=== PATIENT | female | born 1940 | race African-American/Black ===

== ENCOUNTER → 2016-11-03 | Outpatient (CLI) | payer MEDICARE, MEDICAID ==
[~2016-11-03] MED LIST: ALLO100T PO; ASPI-1035 PO; ATOR40TA70 PO; ESOM40CA PO; LORA10TA7 PO
== END | disposition home or self-care (01) ==
LOC: MAMMO 10:20
PROVIDERS: ATTEND Specialist
DX: Z12.31 Encounter for screening mammogram for malignant neoplasm of breast (principal)
CPT/HCPCS: G0202

== ENCOUNTER → 2017-04-26 | Outpatient (CLI) | payer MEDICARE, MEDICAID ==
[~2017-04-26] MED LIST changes: -ASPI-1035 PO; +ASPI-1159 PO
== END | disposition home or self-care (01) ==
LOC: US 07:47
PROVIDERS: ATTEND Internal Medicine
DX: K76.0 Fatty (change of) liver, not elsewhere classified (principal); N28.9 Disorder of kidney and ureter, unspecified; K80.50 Calculus of bile duct without cholangitis or cholecystitis without obstruction
CPT/HCPCS: 76700

== ENCOUNTER → 2019-03-27 | Outpatient (CLI) | payer MEDICARE ==
[~2019-03-27] MED LIST changes: -ASPI-1159 PO; +ASPI-1393 PO
== END | disposition home or self-care (01) ==
LOC: RAD 12:23
PROVIDERS: ATTEND Specialist
DX: M19.042 Primary osteoarthritis, left hand (principal)
CPT/HCPCS: 73140

== ENCOUNTER 2020-10-15 10:45 | Emergency (ER) | payer MEDICARE, MEDICAID ==
[~2020-10-15] VITALS: Ht 167.6 cm; Wt 90.7 kg
[~2020-10-15 10:45] MED LIST changes: -ASPI-1393 PO; +ASPI-1497 PO
[2020-10-15] MEDS ORDERED: ACETAMINOPHEN 325MG TABLET PO ONE (11:15)
[2020-10-15] MEDS ORDERED: AMLODIPINE 10MG TABLET PO ONE (11:15)
[2020-10-15] MEDS ORDERED: ALLOPURINOL 100 MG TABLET PO SCH (11:15)
[2020-10-15] MEDS ORDERED: ASPIRIN 325MG EC TABLET PO ONE (11:15)
[2020-10-15] MEDS ORDERED: LIDOCAINE 5% PATCH TOP SCH (11:15)
[2020-10-15] MEDS ORDERED: BACLOFEN 10MG TABLET PO NR (11:30)
[2020-10-15 12:09] LABS: EOSINOPHILS % 4.2 % (0.0-5.0); HEMATOCRIT. 45.3 % (36.0-48.0); HEMOGLOBIN. 15.3 g/dL (12.0-16.0); LYMPHOCYTES % 23.5 % (20.0-50.0); MEAN CORPUSCULAR HEMOGLOBIN 29.2 pg (28.0-32.0); MEAN CORPUSCULAR VOLUME 86.5 fL (81.0-99.0); MEAN PLATELET VOLUME 9.8 fl (7.4-10.4); MONOCYTES % 7.5 % (2.0-8.0); NEUTROPHILS % 63.8 % (40.0-76.0); PLATELET 210 x1000/uL (130-400); RED BLOOD CELL COUNT 5.23 mill/uL (4.2-5.4); RED CELL DISTRIBUTION WIDTH 14.1 % (11.6-14.6)
[2020-10-15 12:13] LABS: CHLORIDE 112 mEq/L (98-107)
[2020-10-15 15:22] LABS: CLARITY URINE CLOUDY (CLEAR); COLOR URINE YELLOW (YELLOW); KETONES URINE NEGATIVE (NEGATIVE); LEUKOCYTE ESTERASE URINE 1+ (NEGATIVE); NITRITE URINE NEGATIVE (NEGATIVE); OCCULT BLOOD URINE NEGATIVE (NEGATIVE); PH URINE 5.5 (4.5-8.0); PROTEIN URINE NEGATIVE (NEGATIVE); SPECIFIC GRAVITY URINE 1.013 (1.005-1.030); UROBILINOGEN URINE 0.2 E.U./dL (0.2-1.0)
[2020-10-15] MEDS ORDERED: TOPUD PO (15:37)
[2020-10-15] MEDS ORDERED: BACL-141 MT (15:37)
[2020-10-15] MEDS ORDERED: NITR-87 MT (15:37)
[2020-10-15] MEDS ORDERED: LIDO700A15 TP (15:38)
[2020-10-15] MEDS ORDERED: NITROFURANTOIN 100MG M/M CAPSULE PO NR (15:45)
[2020-10-15 16:30] VITALS: BP 158/89
== END 2020-10-15 18:40 | disposition home or self-care (01) ==
LOC: ER 10:45
DX: N39.0 Urinary tract infection, site not specified (principal); I10 Essential (primary) hypertension; M10.9 Gout, unspecified; F17.210 Nicotine dependence, cigarettes, uncomplicated; Z95.0 Presence of cardiac pacemaker; Z79.82 Long term (current) use of aspirin
CPT/HCPCS: 36415; 76770; 80053; 81003; 85025; 99285